=== PATIENT | female | born 1995 | race Caucasian/White ===

== ENCOUNTER 2018-05-27 06:44 | Inpatient (IN) | payer OTHER ==
[2018-05-27] MEDS ORDERED: NS w/ Oxytocin 10 units 500 ML ONE (07:23)
[2018-05-27] MEDS: Lactated Ringer's 1,000 ML IV SCH ×2 (07:35→12:12)
[2018-05-27 08:11] VITALS: BMI 41.5
[2018-05-27] MEDS ORDERED: HYDROcodone/Acetaminophen 5/325 mg Tablet PO PRN ×2 (08:43)
[2018-05-27] MEDS ORDERED: Promethazine HCl 25 MG/ML VIAL IM PRN (08:43)
[2018-05-27] MEDS ORDERED: NS w/ Oxytocin 10 units 500 ML IV SCH (08:43)
[2018-05-27] MEDS ORDERED: Lactated Ringer's 1,000 ML IV SCH (08:43)
[2018-05-27] MEDS ORDERED: Lidocaine 1% (PF) 30 ML VIAL SC PRN (08:43)
[2018-05-27] MEDS ORDERED: NS / Oxytocin 40 units/1000ml 1,000 ML IV PRN (08:43)
[2018-05-27] MEDS ORDERED: Ondansetron PF 4 MG/2 ML Vial IVP PRN (08:43)
[2018-05-27] MEDS ORDERED: Ibuprofen 800 MG TAB PO PRN (08:43)
[2018-05-27 09:01] LABS: Hemoglobin 10.4 g/dL (12.0-16.0); Mean Corpuscular HGB CONC 32.5 g/dL (32.0-36.0); Mean Corpuscular Hemoglobin 28.1 pg (27.0-31.0); Mean Corpuscular Volume 86.3 fL (78.0-98.0); Mean Platelet Volume 8.7 fL (7.4-10.4); Platelet Count 254 thou/uL (130-400); Red Blood Cell (RBC) Count 3.69 mill/uL (4.20-5.40); White Blood Cell (WBC) Count 12.3 thou/uL (4.8-10.8)
[2018-05-27 09:51] LABS: HBSAg Index 0.21 S/CO (0-0.99); Hep B Surf Ag Non-Reactive S/CO (NonReactive); Syphilis Antibody Nonreactive (Nonreactive); Syphilis Antibody Index 0.03 S/CO (<1.00 Non-Reactive)
[2018-05-27] MEDS ORDERED: Butorphanol Tartrate 1 MG/ML VIAL ONE (10:49)
[2018-05-27] MEDS ORDERED: Lidocaine 1% (PF) 30 ML VIAL ONE (12:17)
--- NOTE | 2018-05-27 12:37 | PDOC.OPDEL ---
OB Operative/Delivery Note Delivery Dr/Surgeon: Jayy Pre-Delivery Diagnosis: elective induction Procedure/Post Delivery Dx: spontaneous vaginal delivery Weeks gestation: 39 Anesthesia: none - Findings A Sex: male - 1 min: 9 - 5 min: 9 - Additional Findings/Plan Placenta delivered: spontaneous Repaired Obstetrical Laceration: none Estimated blood loss: QBL 262ml Post delivery plan: routine recovery
[2018-05-27] MEDS ORDERED: Lanolin Ointment 7 GM TUBE TOP PRN (12:40)
[2018-05-27] MEDS ORDERED: Misoprostol 200 MCG TAB VAG PRN (12:40)
[2018-05-27] MEDS ORDERED: Bisacodyl 10 MG SUPP PR PRN (12:40)
[2018-05-27] MEDS ORDERED: Acetaminophen/Codeine 30-300mg Tablet PO PRN ×2 (12:40)
[2018-05-27] MEDS ORDERED: Preparation H Ointment 28 GM TUBE PR PRN (12:40)
[2018-05-27] MEDS ORDERED: Benzocaine/Menthol 20-0.5% 60 ML CAN TOP PRN (12:40)
[2018-05-27] MEDS ORDERED: Adacel (T-DAP) 0.5 ML SYRINGE IM ONE (12:40)
[2018-05-27] MEDS ORDERED: Milk Of Magnesia 30 ML UDCUP PO PRN (12:40)
[2018-05-27] MEDS ORDERED: diphenhydrAMINE 25 MG CAP PO PRN (12:40)
[2018-05-27] MEDS ORDERED: NS / Oxytocin 40 units/1000ml 1,000 ML IV SCH (12:45)
[2018-05-27] MEDS: Ibuprofen 800 MG TAB PO SCH ×2 (15:39→23:15)
[2018-05-27] MEDS: Ferrous Sulfate 325 MG TAB PO SCH (16:01)
[2018-05-27] MEDS: Docusate Calcium (SURFAK) 240 MG CAP PO SCH (23:15)
[2018-05-28] MEDS: Ibuprofen 800 MG TAB PO SCH ×3 (06:22→16:26)
--- NOTE | 2018-05-28 07:47 | PDOC.PP ---
Post Progress Note Post Day #: 1 PO intake tolerated: yes Flatus: yes Ambulation: yes Vital Signs (12 hours) Temp Pulse Resp BP 05/28/18 04:35 97.8 F 89 18 123/61 05/28/18 00:50 97.9 F 83 18 115/64 Weight Weight 227 lb Result Diagrams: 05/27/18 07:49 Additional Labs: Post Labs Blood Type A POSITIVE 05/27/18 07:49 Hep Bs Antigen Non-Reactive S/CO (NonReactive) 05/27/18 07:49 - Assessment/Plan post poartum day 1--doing well. D/c home if baby released. f/u in 6 weeks.
[2018-05-28 08:19] VITALS: BP 130/70; TEMP 98.1
[2018-05-28] MEDS ORDERED: Prenatal Vitamin 1 TAB PO SCH (09:00)
[2018-05-28] MEDS: Docusate Calcium (SURFAK) 240 MG CAP PO SCH (09:40)
[2018-05-28] MEDS: Ferrous Sulfate 325 MG TAB PO SCH ×2 (09:43→16:28)
== END 2018-05-28 17:50 | disposition home or self-care (01) | DRG 807 ==
LOC: L&D 06:44 → 3SW 14:40
PROVIDERS: ADMIT Obstetrics & Gynecology; ATTEND Obstetrics & Gynecology
PROC: 10E0XZZ Delivery of Products of Conception, External Approach (ICD-10-PCS; principal; 2018-05-27)
PROC: 10907ZC Drainage of Amniotic Fluid, Therapeutic from Products of Conception, Via Natural or Artificial Opening (ICD-10-PCS; 2018-05-27)
PROC: 3E033VJ Introduction of Other Hormone into Peripheral Vein, Percutaneous Approach (ICD-10-PCS; 2018-05-27)
DX: O80 Encounter for full-term uncomplicated delivery (principal); Z37.0 Single live birth; Z3A.39 39 weeks gestation of pregnancy; Z98.890 Other specified postprocedural states; Z88.0 Allergy status to penicillin
CPT/HCPCS: 85027; 86780; 86850; 86900; 86901; 87340; 90715; J0595; J2001